=== PATIENT | female | born 1940 | race Native Hawaiian/Other Pacific Islander ===

== ENCOUNTER 2016-12-07 13:47 | Outpatient (CLI) | payer OTHER ==
[2016-12-07 14:25] LABS: PLATELET COUNT 358 K/uL (152-353)
[2016-12-07 15:15] LABS: POTASSIUM 4.3 mmol/L (3.6-5.2)
== END 2016-12-07 19:20 | disposition home or self-care (01) ==
LOC: LAB 13:47
PROVIDERS: Nurse Practitioner Family
DX: I10 Essential (primary) hypertension (principal); E03.8 Other specified hypothyroidism; R60.0 Localized edema; Z79.899 Other long term (current) drug therapy; R06.02 Shortness of breath; Z51.81 Encounter for therapeutic drug level monitoring
CPT/HCPCS: 80053; 80061; 82607; 83036; 83880; 84439; 84443; 85027

== ENCOUNTER 2018-02-27 17:37 | Outpatient (CLI) | payer OTHER | END 2018-02-27 20:34 | disposition home or self-care (01) | LOC: LABW 17:37 | DX: R19.7 Diarrhea, unspecified (principal) | CPT/HCPCS: 82272; 87015; 87045; 87205; 87324; 87328; 87329; 87449; 87899 ==

== ENCOUNTER 2019-09-10 10:12 | Outpatient (CLI) | payer OTHER ==
[2019-09-10 11:06] LABS: PLATELET COUNT 261 K/uL (152-353)
[2019-09-10 11:11] LABS: POTASSIUM 4.1 mmol/L (3.6-5.2)
== END 2019-09-10 23:29 | disposition home or self-care (01) ==
LOC: LABW 10:12
PROVIDERS: Internal Medicine
DX: N18.3 Chronic kidney disease, stage 3 (moderate) (principal); I70.1 Atherosclerosis of renal artery
CPT/HCPCS: 36415; 80053; 81000; 82088; 82330; 82533; 82570; 83735; 83835; 84100; 84155; 84244; 85027

== ENCOUNTER 2019-10-28 09:26 | Outpatient (CLI) | payer OTHER ==
[2019-10-28 10:19] LABS: PLATELET COUNT 288 K/uL (152-353)
== END 2019-10-28 20:54 | disposition home or self-care (01) ==
LOC: LABW 09:26
PROVIDERS: Internal Medicine
DX: N18.3 Chronic kidney disease, stage 3 (moderate) (principal)
CPT/HCPCS: 36415; 80053; 81000; 82330; 82570; 83735; 84100; 84155; 85027

== ENCOUNTER 2019-12-09 10:11 | Outpatient (CLI) | payer OTHER ==
[2019-12-09 10:26] LABS: PLATELET COUNT 305 K/uL (152-353)
[2019-12-09 10:51] LABS: POTASSIUM 4.3 mmol/L (3.6-5.2)
== END 2019-12-09 20:10 | disposition home or self-care (01) ==
LOC: LABW 10:11
PROVIDERS: Internal Medicine
DX: N18.3 Chronic kidney disease, stage 3 (moderate) (principal)
CPT/HCPCS: 36415; 80053; 81000; 82330; 82570; 83735; 84100; 84155; 85027